=== PATIENT | female | born 1985 | race Caucasian/White ===

== ENCOUNTER 2020-08-22 14:12 | Emergency (ER) | payer SELFPAY ==
[2020-08-22 14:39] LABS: Urine Blood 1+ (NEG); Urine Glucose NEGATIVE (NEG); Urine Protein 1+ (NEG); Urine Specific Gravity 1.015 (1.005-1.030); Urine pH 6.5 (5.0-7.0)
[2020-08-22 14:52] LABS: Urine Bacteria 20-50 /HPF (<20); Urine RBC <5 /HPF (NONE SEEN)
[2020-08-22] MEDS ORDERED: NA CHLORIDE 0.9% 1,000 ML ONE (15:10)
[2020-08-22] MEDS ORDERED: KETOROLAC 30 MG/ML INJ ONE (15:10)
[2020-08-22] MEDS ORDERED: CEFTRIAXONE/SWI 1gm 1 GM/10 ML SYR ONE (15:10)
[2020-08-22 15:21] LABS: Absolute Lymphocytes (CBC) 1.9 K/uL (0.7-4.9); Basophils % 0.6 % (0-1.3); Hematocrit 36.1 % (36.0-45.0); Lymphocytes % 22.4 % (15.3-44.8); MPV 9.4 fL (7.6-11.3)
[2020-08-22 15:28] LABS: Potassium 3.8 mmol/L (3.5-5.1)
--- NOTE | 2020-08-22 16:07 | RAD REPORT ---
EXAM DESCRIPTION: CT - Abdomen Pelvis W Contrast - 08/22/2020 3:40 pm CLINICAL HISTORY: Abdominal pain COMPARISON: none. TECHNIQUE: Computed axial tomography of the abdomen pelvis was obtained. 100 cc Isovue-300 was admin istered intravenously. Oral contrast was not requested which limits evaluation of bowel. All CT scans are performed using dose optimization technique as appropriate and may include automated exposure control or mA/KV adjustment according to patient size. FINDINGS: Fatty liver Small low-density area right kidney reaches the periphery. Enhancement of the right renal pelvis and right ureter present. Spleen, pancreas, adrenal and left kidney appear unremarkable. There is no evidence of diverticulitis. Normal appendix IMPRESSION: Small low-density area right kidney reaching the periphery as well as enhancement of the right renal pelvis and right ureter probably indicating a pyelonephritis/ureteritis
[2020-08-22] MEDS ORDERED: FENTANYL CITR 100 MCG/2 ML ONE (16:15)
--- NOTE | 2020-08-22 16:30 | EDPHYS ---
Physician Documentation [facility] Name: Brissa Savage Age: 35 yrs Sex: Female : 1985 Arrival Date: 08/22/2020 Time: 14:15 Bed 19 Private MD: ED Physician Joshua Lemons HPI: 08/22 16:23 This 35 yrs old Female presents to ER via Ambulatory with complaints of Back kb Pain, Urinary Problem. 16:26 The patient complains of pain in the right flank. The pain does not radiate. Severity kb of pain: At its worst the pain was moderate in the emergency department the pain is unchanged. The patient has not experienced similar symptoms in the past. The patient has been recently seen by a physician: the patient's primary care provider. 16:27 Onset: The symptoms/episode began/occurred 1 month(s) ago. Modifying factors: The kb symptoms are alleviated by nothing. the symptoms are aggravated by nothing. Associated signs and symptoms: Pertinent positives: dysuria, fever, urinary frequency, nausea. Pt reports she went for a checkup with her PCP a month ago and they told her she had a UTI. Pt states she did not have symptoms at the time. Pt completed the course of Septra that was prescribed. She started having nausea, fever, difficulty urinating, flank pain 2 days ago. . 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 - Social history:: Smoking status: Patient reports the use of cigarette tobacco products, denies chronic smoking, but will smoke occasionally. ROS: 16:20 Cardiovascular: Negative for chest pain, palpitations, and edema, Respiratory: Negative kb for shortness of breath, cough, wheezing, and pleuritic chest pain, MS/Extremity: Negative for injury and deformity, Skin: Negative for injury, rash, and discoloration, Neuro: Negative for headache, weakness, numbness, tingling, and seizure. 16:20 Constitutional: Positive for chills, fever. 16:20 Abdomen/GI: Positive for nausea. 16:20 : Positive for urinary symptoms, flank pain, urinary frequency, small amounts, burning with urination, difficulty urinating. Exam: 16:21 Constitutional: This is a well developed, well nourished patient who is awake, alert, kb and in no acute distress. Head/Face: Normocephalic, atraumatic. 16:21 Cardiovascular: Regular rate and rhythm with a normal S1 and S2. No gallops, murmurs, or rubs. Normal PMI, no JVD. No pulse deficits. 16:21 Respiratory: the patient does not display signs of respiratory distress, Respirations: normal. 16:21 Abdomen/GI: Inspection: abdomen appears normal, Bowel sounds: normal, in all quadrants, Palpation: soft, in all quadrants, mild abdominal tenderness, in the anterior aspect of right lateral abdomen and right lower quadrant. 16:21 Back: CVA tenderness, that is mild, is noted on the right. 16:21 Neuro: Orientation: is normal, to person, place, time \T\ situation. Mentation: is normal, able to follow commands, Motor: is normal, moves all fours, Gait: is steady. Vital Signs: 14:20 BP 141 / 86; Pulse 86; Resp 16 S; Temp 97.1(TE); Pulse Ox 99% on R/A; Weight 72.57 kg jd3 (R); Height 5 ft. 4 in. (162.56 cm) (R); Pain 6/10; 15:15 BP 114 / 56; Pulse 87; Resp 18; Pulse Ox 100% ; rb3 16:20 BP 119 / 46; Pulse 94; Resp 16; Pulse Ox 100% on R/A; mh5 16:54 BP 101 / 64; Pulse 84; Resp 16; Temp 97.5; Pulse Ox 100% ; bp 14:20 Body Mass Index 27.46 (72.57 kg, 162.56 cm) jd3 MDM: 14:24 Patient medically screened. kb 16:14 Data reviewed: vital signs, nurses notes. Data interpreted: Pulse oximetry: on room air kb is 100 %. Interpretation: normal. Counseling: I had a detailed discussion with the patient and/or guardian regarding: the historical points, exam findings, and any diagnostic results supporting the discharge/admit diagnosis, lab results, radiology results, the need for outpatient follow up, a family practitioner, to return to the emergency department if symptoms worsen or persist or if there are any questions or concerns that arise at home. 08/22 14:19 Order name: Urine Microscopic Only; Complete Time: 14:56 kb 08/22 14:34 Order name: Urine Dipstick--Ancillary (enter results); Complete Time: 14:39 eb 08/22 14:34 Order name: Urine --Ancillary (enter results); Complete Time: 14:39 eb 08/22 14:46 Order name: Basic Metabolic Panel; Complete Time: 15:38 kb 08/22 14:46 Order name: CBC with Diff; Complete Time: 15:23 kb 08/22 14:54 Order name: Urine Culture EDHI 08/22 14:19 Order name: Urine Test (obtain specimen); Complete Time: 14:49 kb 08/22 14:19 Order name: Urine Dipstick-Ancillary (obtain specimen); Complete Time: 14:49 kb 08/22 14:57 Order name: CT Abd/Pelvis - IV Contrast Only; Complete Time: 16:14 kb 08/22 15:29 Order name: CREATININE WHOLE BLOOD; Complete Time: 15:38 EDMS 08/22 14:46 Order name: IV Saline Lock; Complete Time: 15:07 kb 08/22 14:46 Order name: Labs collected and sent; Complete Time: 15:07 kb Administered Medications: 15:00 Drug: NS 0.9% 1000 ml Route: IV; Rate: 1000 ml; Site: right antecubital; bp 15:00 Drug: TORadol - Ketorolac 15 mg Route: IVP; Site: right antecubital; bp 15:20 Follow up: Response: No adverse reaction; Pain is decreased rb3 15:00 Drug: Rocephin 1 grams Route: IV; Rate: calculated rate; Site: right antecubital; bp 16:00 Drug: fentaNYL (PF) 25 mcg Route: IVP; Site: right antecubital; bp 16:20 Follow up: Response: No adverse reaction; Pain is decreased rb3 Disposition: 18:21 Co-signature as Attending Physician, Joshua Lemons MD. rn Disposition: 08/22/20 16:29 Discharged to Home. Impression: Acute tubulo-interstitial nephritis, Urinary tract infection, site not specified. - Condition is Stable. - Discharge Instructions: Pyelonephritis, Adult, [id number], Urinary Tract Infection, Adult, [id number]. - Prescriptions for Augmentin 875- 125 mg Oral Tablet - take 1 tablet by ORAL route every 12 hours for 10 days; 20 tablet. - Medication Reconciliation Form, Thank You Letter, Antibiotic Education, Prescription Opioid Use form. - Follow up: Emergency Department; When: As needed; Reason: Worsening of condition. Follow up: Private Physician; When: 2 - 3 days; Reason: Recheck today's complaints, Continuance of care, Re-evaluation by your physician. Signatures: Dispatcher [employer] EDBella Hudson, MAGNOLIA-C FUNDRAISING MANAGER-Joshua Alvarado MD MD rn Davies, Jonathon, RN RN jJeb Lagunas RN RN bp Barber, Rebecca RN rb3 Corrections: (The following items were deleted from the chart) 16:21 16:20 : Positive for urinary symptoms, urinary frequency, small amounts, burning with kb urination, difficulty urinating, kb 16:29 16:29 08/22/2020 16:29 Discharged to Home. Impression: Acute tubulo-interstitial kb nephritis. Condition is Stable. Forms are Medication Reconciliation Form, Thank You Letter, Antibiotic Education, Prescription Opioid Use. Follow up: Emergency Department; When: As needed; Reason: Worsening of condition. Follow up: Private Physician; When: 2 - 3 days; Reason: Recheck today's complaints, Continuance of care, Re-evaluation by your physician. kb 16:55 16:29 08/22/2020 16:29 Discharged to Home. Impression: Acute tubulo-interstitial bp nephritis; Urinary tract infection, site not specified. Condition is Stable. Forms are Medication Reconciliation Form, Thank You Letter, Antibiotic Education, Prescription Opioid Use. Follow up: Emergency Department; When: As needed; Reason: Worsening of condition. Follow up: Private Physician; When: 2 - 3 days; Reason: Recheck today's complaints, Continuance of care, Re-evaluation by your physician. kb
--- NOTE | 2020-08-22 16:30 | ER ---
Nurse's Notes [facility] Name: Brissa Savage Age: 35 yrs Sex: Female : 1985 Arrival Date: 08/22/2020 Time: 14:15 Bed 19 Private MD: Diagnosis: Acute tubulo-interstitial nephritis;Urinary tract infection, site not specified Presentation: 08/22 14:17 Chief complaint: Patient states: "I had a UTI that started about a month ago and was jd3 seen by my doctor and I have finished my medicine for it, but I feel like it is just getting worse.". Coronavirus screen: At this time, the client does not indicate any symptoms associated with coronavirus-19. Ebola Screen: Patient negative for fever greater than or equal to 101.5 degrees Fahrenheit, and additional compatible Ebola Virus Disease symptoms. Initial Sepsis Screen: Does the patient meet any 2 criteria? No. Patient's initial sepsis screen is negative. Does the patient have a suspected source of infection? No. Patient's initial sepsis screen is negative. Risk Assessment: Do you want to hurt yourself or someone else? Patient reports no desire to harm self or others. Onset of symptoms was August 21, 2020. 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 - Social history:: Smoking status: Patient reports the use of cigarette tobacco products, denies chronic smoking, but will smoke occasionally. Screenin:25 Abuse screen: Denies threats or abuse. Nutritional screening: No deficits noted. rb3 Tuberculosis screening: No symptoms or risk factors identified. Fall Risk None identified. Assessment: 14:25 General: Appears in no apparent distress. comfortable, Behavior is calm, cooperative, rb3 Reports fever for , Temp was 100.0. Pain: Complains of pain in suprapubic area, right lower quadrant and left lower quadrant Pain radiates to mid back. Neuro: Level of Consciousness is awake, alert, obeys commands, Oriented to person, place, time, situation. Cardiovascular: Patient's skin is warm and dry. Respiratory: Airway is patent Respiratory effort is even, unlabored, Respiratory pattern is regular, symmetrical. GI: Reports nausea. : Reports pain in suprapubic area flank(s), in lower back. 15:16 Reassessment: Patient appears in no apparent distress at this time. No changes from rb3 previously documented assessment. 16:54 Reassessment: PT D/C HOME AMBULATORY, DX WITH UTI AND PYELONEPHRITIS. bp Vital Signs: 14:20 BP 141 / 86; Pulse 86; Resp 16 S; Temp 97.1(TE); Pulse Ox 99% on R/A; Weight 72.57 kg jd3 (R); Height 5 ft. 4 in. (162.56 cm) (R); Pain 6/10; 15:15 BP 114 / 56; Pulse 87; Resp 18; Pulse Ox 100% ; rb3 16:20 BP 119 / 46; Pulse 94; Resp 16; Pulse Ox 100% on R/A; mh5 16:54 BP 101 / 64; Pulse 84; Resp 16; Temp 97.5; Pulse Ox 100% ; bp 14:20 Body Mass Index 27.46 (72.57 kg, 162.56 cm) jd3 ED Course: 14:15 Patient arrived in ED. as 14:16 Bella Sims FNP-C [facility]. kb 14:16 Joshua Lemons MD is Attending Physician. kb 14:18 Triage completed. jd3 14:21 Arm band placed on. jd3 14:22 Jillian Daniels, RN is Primary Nurse. rb3 14:25 Patient has correct armband on for positive identification. Bed in low position. Call rb3 light in reach. Side rails up X 1. Pulse ox on. NIBP on. 15:00 Inserted saline lock: 20 gauge in right antecubital area, using aseptic technique. bp Blood collected. 15:20 Urine Culture Sent. bp 15:40 CT Abd/Pelvis - IV Contrast Only In Process Unspecified. EDMS 16:54 No provider procedures requiring assistance completed. IV discontinued, intact, bp bleeding controlled, No redness/swelling at site. Pressure dressing applied. Administered Medications: 15:00 Drug: NS 0.9% 1000 ml Route: IV; Rate: 1000 ml; Site: right antecubital; bp 15:00 Drug: TORadol - Ketorolac 15 mg Route: IVP; Site: right antecubital; bp 15:20 Follow up: Response: No adverse reaction; Pain is decreased rb3 15:00 Drug: Rocephin 1 grams Route: IV; Rate: calculated rate; Site: right antecubital; bp 16:00 Drug: fentaNYL (PF) 25 mcg Route: IVP; Site: right antecubital; bp 16:20 Follow up: Response: No adverse reaction; Pain is decreased rb3 Outcome: 16:29 Discharge ordered by . kb 16:55 Discharged to home ambulatory. bp 16:55 Condition: stable 16:55 Discharge instructions given to patient, Instructed on discharge instructions, follow up and referral plans. medication usage, Demonstrated understanding of instructions, follow-up care, medications, Prescriptions given X 1. 16:55 Patient left the ED. bp Signatures: Dispatcher [employer] EDDC Bella Sims, CONTAINER PACKER OPERATOR-C CONTAINER PACKER OPERATOR-Nan Berger [facility] Andrea Grace RN RN jJeb Lagunas RN RN Jillian Mckinnon, RN RN rb3
[2020-08-22 17:05] VITALS: O2SAT 100
[2020-08-22 17:08] VITALS: BP 101/64; TEMP 97.5
[2020-08-29] MEDS ORDERED: NA CHLORIDE 0.9% 500 ML ONE (15:44)
[2020-08-29] MEDS ORDERED: NITROGLYCERIN 0.4 MG/TAB SL ONE (15:44)
[2020-08-29] MEDS ORDERED: ASPIRIN 81 MG CHEWABLE TABLET ONE (15:45)
== END 2020-08-22 16:55 | disposition home or self-care (01) ==
LOC: ER 14:12
DX: N10 Acute pyelonephritis (principal); N39.0 Urinary tract infection, site not specified; F17.210 Nicotine dependence, cigarettes, uncomplicated
CPT/HCPCS: 36415; 74177; 80048; 81003; 81015; 81025; 82565; 85025; 87077; 87086; 87088; 87186; 96374; 96375; 99284; J0696; J3010; J7030; Q9967

== ENCOUNTER 2021-03-24 18:03 | Emergency (ER) | payer SELFPAY ==
[2021-03-24 19:39] LABS: Absolute Lymphocytes (CBC) 1.6 K/uL (0.7-4.9); Basophils % 0.3 % (0-1.3); Hematocrit 37.9 % (36.0-45.0); Lymphocytes % 26.6 % (15.3-44.8); MPV 8.9 fL (7.6-11.3); RBC Red Blood Cell Count 3.84 M/uL (3.86-4.86)
[2021-03-24 19:40] LABS: Protime INR 0.91
--- NOTE | 2021-03-24 19:42 | RAD REPORT ---
EXAM DESCRIPTION: RAD - Chest Pa And Lat (2 Views) - 03/24/2021 7:38 pm CLINICAL HISTORY: CHEST PAIN COMPARISON: No comparisons FINDINGS: Lines: None. Lungs: No evidence of edema or pneumonia. Pleural: No significant pleural effusions or pneumothorax. Cardiac: The heart size is within normal limits. Bones: No acute fractures. Other: IMPRESSION: No acute cardiopulmonary disease.
[2021-03-24 20:17] LABS: ALT/SGPT 135 U/L (12-78); AST/SGOT 74 U/L (15-37); Albumin 4.3 g/dL (3.4-5.0); Alkaline Phosphatase 79 U/L (45-117); BUN Blood Urea Nitrogen 17 mg/dL (7-18); Bicarbonate 24 mmol/L (21-32); Bilirubin Direct 0.1 mg/dL (0-0.2); Bilirubin Total 0.5 mg/dL (0.2-1.0); Glucose Level 116 mg/dL (74-106); Magnesium 2.5 mg/dL (1.8-2.4); NT PRO-BNP 117 pg/mL (<125); Potassium 3.6 mmol/L (3.5-5.1); Protein, Total 8.2 g/dL (6.4-8.2); Sodium Level 139 mmol/L (136-145); Troponin (Emerg Dept Use Only) < 0.02 ng/mL (0.0-0.045)
--- NOTE | 2021-03-24 21:59 | EDPHYS ---
Physician Documentation [facility] Name: Brissa Savage Age: 35 yrs Sex: Female : 1985 Arrival Date: 03/24/2021 Time: 18:04 Bed 20 Private MD: ED Physician Jeff Bain HPI: 03/24 19:32 This 35 yrs old Female presents to ER via Ambulatory with complaints of Chest jmm Pain - post covid, Leg Pain. 19:32 The patient or guardian reports chest pain that is located primarily in the substernal jmm area. The pain does not radiate. Associated signs and symptoms: Pertinent positives: lower extremity pain. The chest pain is described as aching, a heaviness. Duration: The patient or guardian reports a single episode, that is still ongoing. Modifying factors: The symptoms are alleviated by nothing. the symptoms are aggravated by nothing. Is a 35-year-old female with a history of fibromyalgia that presents emerged part with complaints of substernal chest pain beginning today. Patient states she tested positive for coronavirus at the beginning of March. . 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 - Social history:: Smoking status: Patient reports the use of cigarette tobacco products, smokes one-half pack cigarettes per day. ROS: 19:32 Cardiovascular: Positive for chest pain. jmm 19:32 Cardiovascular: Positive for 19:32 Respiratory: Positive for shortness of breath. 19:32 Respiratory: Positive for 19:32 All other systems are negative. Exam: 19:32 Constitutional: This is a well developed, well nourished patient who is awake, alert, jmm and in no acute distress. Head/Face: atraumatic. Eyes: EOMI, no conjunctival erythema appreciated ENT: Moist Mucus Membranes Neck: Trachea midline, Supple Chest/axilla: Normal chest wall appearance and motion. Cardiovascular: Regular rate and rhythm. No edema appreciated Respiratory: Normal respirations, no respiratory distress appreciated Abdomen/GI: Non distended, soft Back: Normal ROM Skin: General appearance color normal MS/ Extremity: Moves all extremities, no obvious deformities appreciated, no edema noted to the lower extremities Neuro: Awake and alert, normal gait Psych: Behavior is normal, Mood is normal, Patient is cooperative and pleasant Vital Signs: 18:37 BP 147 / 87; Pulse 104; Resp 19; Temp 98.8(TE); Pulse Ox 100% on R/A; Weight 74.84 kg; tw2 Height 5 ft. 4 in. (162.56 cm); Pain 6/10; 19:55 BP 136 / 86; Pulse 90; Resp 15; Temp 98.8(O); Pulse Ox 100% ; ms4 21:41 BP 125 / 83; Pulse 89; Resp 18; Pulse Ox 100% on R/A; ms4 18:37 Body Mass Index 28.32 (74.84 kg, 162.56 cm) tw2 MDM: 19:25 Patient medically screened. jd 21:58 Data reviewed: vital signs, nurses notes. Counseling: I had a detailed discussion with broderick the patient and/or guardian regarding: the historical points, exam findings, and any diagnostic results supporting the discharge/admit diagnosis, radiology results, the need for outpatient follow up, to return to the emergency department if symptoms worsen or persist or if there are any questions or concerns that arise at home. 03/24 19:22 Order name: Basic Metabolic Panel ms4 03/24 19:22 Order name: CBC with Diff ms4 03/24 19:22 Order name: LFT's ms4 03/24 19:22 Order name: Magnesium ms4 03/24 19:22 Order name: NT PRO-BNP ms4 03/24 19:22 Order name: PT-INR ms4 03/24 19:22 Order name: Troponin (emerg Dept Use Only) ms4 03/24 19:22 Order name: Basic Metabolic Panel; Complete Time: 20:18 EDMS 03/24 19:22 Order name: CBC with Automated Diff; Complete Time: 19:41 EDMS 03/24 19:23 Order name: Liver (Hepatic) Function; Complete Time: 20:18 EDMS 03/24 19:23 Order name: Magnesium; Complete Time: 20:18 EDMS 03/24 19:23 Order name: NT PRO-BNP; Complete Time: 20:18 EDMS 03/24 19:23 Order name: Troponin (Emerg Dept Use Only); Complete Time: 20:18 EDMS 03/24 19:23 Order name: Protime (+INR); Complete Time: 21:58 EDMS 03/24 18:43 Order name: Chest Pa And Lat (2 Views) XRAY; Complete Time: 19:46 tw2 03/24 19:22 Order name: EKG; Complete Time: 19:23 ms4 03/24 19:22 Order name: Cardiac monitoring; Complete Time: 19:32 ms4 03/24 19:22 Order name: EKG - Nurse/Tech; Complete Time: 19:32 ms4 03/24 19:22 Order name: IV Saline Lock; Complete Time: 19:32 ms4 03/24 19:22 Order name: Labs collected and sent; Complete Time: 19:31 ms4 03/24 19:22 Order name: O2 Per Protocol; Complete Time: 19:31 ms4 03/24 19:22 Order name: O2 Sat Monitoring; Complete Time: 19:31 ms4 03/24 21:33 Order name: D-Dimer; Complete Time: 21:58 EDMS Administered Medications: No medications were administered Disposition: 03/25 06:04 Co-signature as Attending Physician, Jeff Bain MD I agree with the assessment and jd plan of care. Disposition Summary: 03/24/21 21:59 Discharge Ordered Location: Home jmm Condition: Stable jm Diagnosis - Chest pain, unspecified jmm Followup: jm - With: Private Physician - When: 2 - 3 days - Reason: Recheck today's complaints, Continuance of care, Re-evaluation by your physician Discharge Instructions: - Discharge Summary Sheet jmm - Nonspecific Chest Pain, Adult jmm Forms: - Medication Reconciliation Form jm - Thank You Letter jm - Antibiotic Education jmm - Prescription Opioid Use jm Signatures: Dispatcher [employer] Jeff Duran MD MD cha Mickail, Joel, PA PA jmm Wise, Tara, RN RN tw2 Judy Leos RN RN ms4 Corrections: (The following items were deleted from the chart) 03/24 21:33 21:32 D-DIMER+COAG.LAB.BRZ ordered. EDMS EDMS
--- NOTE | 2021-03-24 21:59 | ER ---
Nurse's Notes [facility] Name: Brissa Savage Age: 35 yrs Sex: Female : 1985 Arrival Date: 03/24/2021 Time: 18:04 Bed 20 Private MD: Diagnosis: Chest pain, unspecified Presentation: 03/24 18:37 Chief complaint: Patient states: i test POSITIVE for COVID 03/04. i had symptoms but not tw2 this lung stuff. now i feel like i have this sharp pain. pressure also in my chest. pain in LEFT leg as well. i also have fibromyalgia as well and Darin's but this just scared. i feel short of breath. Chief complaint: Patient states: i also took a [place] 10/ about 1 hour ago. Coronavirus screen: difficulty breathing, Client presents with at least one sign or symptom that may indicate coronavirus-19. Standard/surgical mask placed on the client. Provider contacted for isolation considerations. Ebola Screen: Patient denies travel to an Ebola-affected area in the 21 days before illness onset. Initial Sepsis Screen: Does the patient meet any 2 criteria? No. Patient's initial sepsis screen is negative. Does the patient have a suspected source of infection? No. Patient's initial sepsis screen is negative. Risk Assessment: Do you want to hurt yourself or someone else? Patient reports no desire to harm self or others. Onset of symptoms was March 24, 2021. 18:37 Method Of Arrival: Ambulatory tw2 18:37 Acuity: MONO 3 tw2 Triage Assessment: 18:42 General: Appears in no apparent distress. Behavior is calm, cooperative, appropriate tw2 for age. Pain: Complains of pain in chest and left leg. Cardiovascular: Reports chest pain, shortness of breath. 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 - Social history:: Smoking status: Patient reports the use of cigarette tobacco products, smokes one-half pack cigarettes per day. Screenin:41 Abuse screen: Denies threats or abuse. Denies injuries from another. Nutritional ms4 screening: No deficits noted. Tuberculosis screening: No symptoms or risk factors identified. Fall Risk None identified. Assessment: 21:41 Reassessment: Patient appears in no apparent distress at this time. No changes from ms4 previously documented assessment. Patient and/or family updated on plan of care and expected duration. Pain level reassessed. Patient is alert, oriented x 3, equal unlabored respirations, skin warm/dry/pink. General: Appears in no apparent distress. Behavior is calm, cooperative, appropriate for age. Pain: Complains of pain in left leg and chest Pain does not radiate. Pain began suddenly. Cardiovascular: No deficits noted. Respiratory: No deficits noted. Vital Signs: 18:37 BP 147 / 87; Pulse 104; Resp 19; Temp 98.8(TE); Pulse Ox 100% on R/A; Weight 74.84 kg; tw2 Height 5 ft. 4 in. (162.56 cm); Pain 6/10; 19:55 BP 136 / 86; Pulse 90; Resp 15; Temp 98.8(O); Pulse Ox 100% ; ms4 21:41 BP 125 / 83; Pulse 89; Resp 18; Pulse Ox 100% on R/A; ms4 18:37 Body Mass Index 28.32 (74.84 kg, 162.56 cm) tw2 ED Course: 18:04 Patient arrived in ED. am2 18:40 Triage completed. tw2 18:40 Arm band placed on. tw2 18:56 Robin Neil PA is PHCP. [facility] 18:56 Mary Beth Fink MD is Attending Physician. [facility] 19:22 Judy Leos, MARLENA is Primary Nurse. ms4 19:23 Attending Physician role handed off by Mary Beth Fink MD cha 19:23 Jeff Bain MD is Attending Physician. jd 19:30 Protime (+INR) Sent. ms4 19:30 Troponin (Emerg Dept Use Only) Sent. ms4 19:31 Liver (Hepatic) Function Sent. ms4 19:31 Magnesium Sent. ms4 19:31 NT PRO-BNP Sent. ms4 19:31 Basic Metabolic Panel Sent. ms4 19:31 CBC with Automated Diff Sent. ms4 19:37 Chest Pa And Lat (2 Views) XRAY In Process Unspecified. EDMS 19:52 Basic Metabolic Panel Sent. ms4 19:52 CBC with Diff Sent. ms4 19:52 LFT's Sent. ms4 19:52 Magnesium Sent. ms4 19:52 NT PRO-BNP Sent. ms4 19:52 PT-INR Sent. ms4 19:52 Troponin (emerg Dept Use Only) Sent. ms4 22:31 No provider procedures requiring assistance completed. IV discontinued, intact. Patient ms4 maintains SpO2 saturation greater than 95% on room air. 22:32 Patient has correct armband on for positive identification. Call light in reach. ms4 quality assurance monitor body on. Pulse ox on. NIBP on. Administered Medications: No medications were administered Outcome: 21:59 Discharge ordered by . broderick 22:32 Discharged to home ambulatory. ms4 22:32 Condition: stable 22:32 Discharge instructions given to patient, Instructed on discharge instructions. 22:32 Patient left the ED. ms4 Signatures: Dispatcher [employer] EDJeff Taylor MD MD cha Mickail, Joel, PA PA Tamika Winters, RN RN tw2 Stephani Woods am2 Judy Leos, RN RN ms4 Corrections: (The following items were deleted from the chart) 19:54 19:53 Patient placed ms4 ms4
[2021-03-24 23:29] VITALS: TEMP 98.8; O2SAT 100
[2021-03-24 23:31] VITALS: BP 125/83
[2021-03-25 20:06] LABS: Urine Blood Negative (Negative); Urine Glucose Negative (Negative); Urine Protein Negative (Negative); Urine Specific Gravity 1.025 (1.005-1.030); Urine pH 6.5 (5.0-7.0)
== END 2021-03-24 22:32 | disposition home or self-care (01) ==
LOC: ER 18:03
DX: R07.9 Chest pain, unspecified (principal); M79.7 Fibromyalgia; Z86.16 Personal history of COVID-19
CPT/HCPCS: 36415; 71046; 80048; 80076; 83735; 83880; 84484; 85025; 85379; 85610; 93005; 99284

== ENCOUNTER 2022-04-04 18:36 | Emergency (ER) | payer SELFPAY ==
[2022-04-04] MEDS ORDERED: LIDOCAINE 1% W/EPI 1:100,000 10 ML VIAL ONE (19:33)
[2022-04-04] MEDS ORDERED: BUPIVACAINE 0.5% PF 10 ML VIAL ONE (19:36)
--- NOTE | 2022-04-04 20:19 | EDPHYS ---
Physician Documentation [facility] Name: Brissa Savage Age: 36 yrs Sex: Female : 1985 Arrival Date: 04/04/2022 Time: 18:38 Bed 4 Private MD: ED Physician Jeff Bain HPI: 04/04 19:40 This 36 yrs old Female presents to ER via Ambulatory with complaints of Abscess. cp 19:40 the patient presents with a swollen area of the left groin. Description: draining, cp swollen. Onset: The symptoms/episode began/occurred 1 week(s) ago. Possible cause(s): concern for enlarged lymph node. Associated signs and symptoms: Pertinent positives: drainage, weight loss, Pertinent negatives: fever. Severity of symptoms: in the emergency department the symptoms are unchanged, despite home interventions. 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 - Social history:: Smoking status: Patient reports the use of cigarette tobacco products, smokes one-half pack cigarettes per day. ROS: 19:45 Constitutional: Positive for weight loss, Negative for body aches, chills, fever, poor cp PO intake. 19:45 Eyes: Negative for injury, pain, redness, and discharge. cp 19:45 ENT: Negative for drainage from ear(s), ear pain, sore throat, difficulty swallowing, difficulty handling secretions. 19:45 Cardiovascular: Negative for chest pain, palpitations. 19:45 Respiratory: Negative for cough, shortness of breath, wheezing. 19:45 Abdomen/GI: Negative for abdominal pain, nausea, vomiting, and diarrhea. 19:45 Skin: Positive for swelling, of the left groin. 19:45 Neuro: Negative for altered mental status, dizziness, headache, weakness. 19:45 All other systems are negative. Exam: 19:50 Constitutional: The patient appears in no acute distress, alert, awake, non-toxic, well cp developed, well nourished, anxious. 19:50 Head/Face: Normocephalic, atraumatic. cp 19:50 Chest/axilla: Inspection: normal. 19:50 Cardiovascular: Rate: normal, Rhythm: regular. 19:50 Respiratory: the patient does not display signs of respiratory distress, Respirations: normal, no use of accessory muscles, no retractions. 19:50 Abdomen/GI: Inspection: abdomen appears normal, Palpation: abdomen is soft and non-tender, in all quadrants. 19:50 Skin: abscess, that is small, of the left groin, with drainage, that is purulent, mild surrounding erythema. 19:50 Neuro: Orientation: to person, place \T\ time. Mentation: is normal. Vital Signs: 19:01 BP 128 / 83; Pulse 83; Resp 16 S; Temp 98.7(O); Pulse Ox 100% on R/A; Weight 63.5 kg as6 (R); Height 5 ft. 3 in. (160.02 cm) (R); Pain 6/10; 19:01 Body Mass Index 24.80 (63.50 kg, 160.02 cm) as6 MDM: 19:11 Patient medically screened. cp 20:15 Data reviewed: vital signs, nurses notes. cp 20:15 ED course: Discussed performing I\T\D with packing of iodoform gauze and prescribing oral cp antibiotic. Went to check on patient and set-up for procedure, but patient left ED prior to notifying staff. Administered Medications: 20:17 Not Given (Patient Refused): Lidocaine-Epinephrine -1%: (1:100,000) 10 ml 20 ml ha1 Infiltration once; to bedside 20:17 Not Given (Patient Refused): Marcaine (bupivacaine) (0.5 %) 10 ml 10 ml Infiltration ha1 once Disposition Summary: 04/04/22 20:18 Discharge Ordered Location: Home cp Problem: new cp Symptoms: are unchanged cp Condition: Stable cp Diagnosis - Cutaneous abscess of groin - left cp Followup: cp - With: Private Physician - When: 1 - 2 days - Reason: Recheck today's complaints Discharge Instructions: - Discharge Summary Sheet cp - Skin Abscess cp Forms: - Medication Reconciliation Form cp - Thank You Letter cp - Antibiotic Education cp - Prescription Opioid Use cp Signatures: Jeff Chappell PA PA cp Davidson Tolentino RN RN as6 Dalia Hand RN ha1 Corrections: (The following items were deleted from the chart) 20:17 19:34 I\T\D Setup ordered. cp ha1
--- NOTE | 2022-04-04 20:19 | ER ---
Nurse's Notes [facility] Name: Brissa Savage Age: 36 yrs Sex: Female : 1985 Arrival Date: 04/04/2022 Time: 18:38 Bed 4 Private MD: Diagnosis: Cutaneous abscess of groin-left Presentation: 04/04 19:01 Chief complaint: Patient states: "For a while I've had a swollen lymph node to my left as6 groin area and recently its gotten more painful, red, and hard. I also have lost a lot of weight without trying.". Coronavirus screen: At this time, the client does not indicate any symptoms associated with coronavirus-19. Ebola Screen: No symptoms or risks identified at this time. Initial Sepsis Screen: Does the patient meet any 2 criteria? No. Patient's initial sepsis screen is negative. Does the patient have a suspected source of infection? No. Patient's initial sepsis screen is negative. Risk Assessment: Do you want to hurt yourself or someone else? Patient reports no desire to harm self or others. Onset of symptoms was March 21, 2022. 19:01 Method Of Arrival: Ambulatory as6 19:01 Acuity: MONO 3 as6 Triage Assessment: 19:06 General: Appears in no apparent distress. Behavior is calm, cooperative. Pain: as6 Complains of pain in left femoral area. 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 - Social history:: Smoking status: Patient reports the use of cigarette tobacco products, smokes one-half pack cigarettes per day. Screenin:19 Abuse screen: Denies threats or abuse. Denies injuries from another. Nutritional kd3 screening: No deficits noted. Tuberculosis screening: No symptoms or risk factors identified. Fall Risk None identified. Assessment: 19:29 General: Appears in no apparent distress. comfortable, Behavior is calm, cooperative, jb4 appropriate for age. Pain: Complains of pain in left inner thigh Pain does not radiate. Pain currently is 6 out of 10 on a pain scale. Neuro: Level of Consciousness is awake, alert, obeys commands, Oriented to person, place, time, situation. Cardiovascular: Patient's skin is warm and dry. Respiratory: Airway is patent Respiratory effort is even, unlabored, Respiratory pattern is regular, symmetrical. GI: No signs and/or symptoms were reported involving the gastrointestinal system. : No signs and/or symptoms were reported regarding the genitourinary system. EENT: No signs and/or symptoms were reported regarding the EENT system. Derm: Skin is intact, Skin is pink, warm \\T\\ dry. Abscess located on left inner thigh is nickel sized. Musculoskeletal: Circulation, motion, and sensation intact. Range of motion: intact in all extremities. 20:17 General: PT REFUSE i\\T\\d. ha1 20:19 Reassessment: pt. left prior to signing paper work. ha1 Vital Signs: 19:01 BP 128 / 83; Pulse 83; Resp 16 S; Temp 98.7(O); Pulse Ox 100% on R/A; Weight 63.5 kg as6 (R); Height 5 ft. 3 in. (160.02 cm) (R); Pain 6/10; 19:01 Body Mass Index 24.80 (63.50 kg, 160.02 cm) as6 ED Course: 18:38 Patient arrived in ED. rg4 18:49 Jeff Chappell PA is PHCP. cp 18:49 Khoi Nicole MD is Attending Physician. cp 19:05 Triage completed. as6 19:06 Arm band placed on. as6 19:09 Linda Holland, MARLENA is Primary Nurse. kr3 19:10 Attending Physician role handed off by Khoi Nicole MD jd 19:10 Jeff Bain MD is Attending Physician. jd 19:27 Primary Nurse role handed off by Linda Holland, RN mw2 19:29 Tushar Schmidt, MARLENA is Primary Nurse. jb4 20:19 Patient has correct armband on for positive identification. kd3 20:19 No provider procedures requiring assistance completed. Patient did not have IV access kd3 during this emergency room visit. Administered Medications: 20:17 Not Given (Patient Refused): Lidocaine-Epinephrine -1%: (1:100,000) 10 ml 20 ml ha1 Infiltration once; to bedside 20:17 Not Given (Patient Refused): Marcaine (bupivacaine) (0.5 %) 10 ml 10 ml Infiltration ha1 once Medication: 20:20 VIS not applicable for this client. kd3 Outcome: 20:18 Discharge ordered by . yaneli 20:19 Discharged to home ambulatory. kd3 20:19 Condition: stable 20:19 Discharge instructions given to patient, family, Instructed on discharge instructions, follow up and referral plans. Demonstrated understanding of instructions, follow-up care. 20:22 Patient left the ED. ha1 Signatures: eJff Bain MD MD cha Page, Corey, PA PA Shanice Pang rg4 Tushar Schmidt, RN RN jb4 Amarilys Abdullahi mw2 Davidson Tolentino RN RN as6 Chyna Damian RN RN kd3 Dalia Hand, RN RN ha1 Linda Holland, MARLENA RN kr3
[2022-04-04 20:28] VITALS: BP 128/83; TEMP 98.7; O2SAT 100
== END 2022-04-04 20:22 | disposition home or self-care (01) ==
LOC: ER 18:36
PROC: 0J9M0ZZ Drainage of Left Upper Leg Subcutaneous Tissue and Fascia, Open Approach (ICD-10-PCS; principal; 2022-04-04)
DX: L02.214 Cutaneous abscess of groin (principal); E03.9 Hypothyroidism, unspecified; I10 Essential (primary) hypertension; M79.7 Fibromyalgia
CPT/HCPCS: 99281